=== PATIENT | female | born 1955 | race Hispanic/Latino ===

== ENCOUNTER 2023-06-21 09:24 | Day surgery (SDC) | payer MEDICARE ==
[~2023-06-21] VITALS: Ht 154.9 cm; Wt 73.0 kg
[2023-06-21] VITALS (11 sets, daily range): BP systolic 107–139; BP diastolic 65–91; PULSE 65–87; RESP 12–16
[~2023-06-21 09:24] MED LIST: ALBU0.63 IH; ATOR10TA69 PO; AZEL6DRO6 NASAL; CETI10TA57 PO; DULO60CA64 PO; ESOM40CA66 PO; GABA-534 PO; LEVO25CA4 PO; MONT-39 PO; OLME40TA18 PO; OXYB10TA30 PO; SEMA0.253 SQ; TIOT18CA3 IH
[2023-06-21] MEDS: 0.9%NACL 1000ML 1,000 ML IV ONE (11:00)
[2023-06-21] MEDS ORDERED: LIDOCAINE HCL 400MG/20ML VIAL ONE (12:19)
[2023-06-21] MEDS ORDERED: PROPOFOL 10 MG/ML 20ML VIAL IV ONE (12:19)
== END 2023-06-21 13:30 | disposition home or self-care (01) ==
LOC: ENDO 09:24 → DAH 09:24 → ENDO 13:30
PROVIDERS: ATTEND Internal Medicine Gastroenterology
DX: K22.2 Esophageal obstruction (principal); K29.70 Gastritis, unspecified, without bleeding; K21.9 Gastro-esophageal reflux disease without esophagitis; K59.00 Constipation, unspecified; D64.9 Anemia, unspecified; E78.00 Pure hypercholesterolemia, unspecified; I10 Essential (primary) hypertension; J45.909 Unspecified asthma, uncomplicated; E03.9 Hypothyroidism, unspecified; M19.90 Unspecified osteoarthritis, unspecified site; K76.0 Fatty (change of) liver, not elsewhere classified; E66.09 Other obesity due to excess calories; Z68.31 Body mass index [BMI] 31.0-31.9, adult; Z88.0 Allergy status to penicillin; Z88.8 Allergy status to other drugs, medicaments and biological substances; Z82.49 Family history of ischemic heart disease and other diseases of the circulatory system; Z83.79 Family history of other diseases of the digestive system; Z79.51 Long term (current) use of inhaled steroids; Z79.890 Hormone replacement therapy; Z79.899 Other long term (current) drug therapy; Z98.891 History of uterine scar from previous surgery; Z98.890 Other specified postprocedural states; Z86.16 Personal history of COVID-19
CPT/HCPCS: 43249; 43239; J3490; J7030 ×2; J2704; A4620; A4215; A4223; A7002; A4222; A4221; A4663; A4606; C1726